=== PATIENT | male | born 1970 | race Caucasian/White ===

== ENCOUNTER 2022-12-07 09:05 | Emergency (ER) | payer OTHER ==
[2022-12-07 09:12] VITALS: RESP 16
--- NOTE | 2022-12-07 10:39 | XR ---
EXAMINATION TYPE: XR wrist complete LT DATE OF EXAM: 12/07/2022 CLINICAL HISTORY: pain TECHNIQUE: Frontal, lateral and oblique images of the left wrist are obtained. Additional scaphoid v iew is obtained. COMPARISON: None. FINDINGS: There is no acute fracture/dislocation evident. The joint spaces appear within normal cruz its. The overlying soft tissue appears unremarkable. IMPRESSION: There is no acute fracture or dislocation seen. ICD 10 NO FRACTURE, INITIAL EVALUATION
--- NOTE | 2022-12-07 10:40 | XR ---
EXAMINATION TYPE: XR hand complete LT DATE OF EXAM: 12/07/2022 CLINICAL HISTORY: pain TECHNIQUE: Frontal, lateral and oblique images of the left hand are obtained. COMPARISON: None. FINDINGS: There is no acute fracture/dislocation evident. The joint spaces appear within normal limi ts. The overlying soft tissue appears unremarkable. IMPRESSION: There is no acute fracture or dislocation. ICD 10 NO FRACTURE, INITIAL EVALUATION
--- NOTE | 2022-12-07 10:42 | ED ---
Upper Extremity HPI - General Chief Complaint: Extremity Injury, Upper Stated Complaint: Wrist injury Time Seen by Provider: 12/07/22 09:59 Source: patient, RN notes reviewed Mode of arrival: ambulatory Limitations: no limitations - History of Present Illness Initial Comments: This is a 52-year-old male who presents to the emergency department for left h and and wrist pain. States that yesterday when he was cleaning snow off of his truck, he heard a pop in his wrist. Since then, he has had pain in the left wrist and states that it overall feels weaker. He has been icing it with no relief. Additionally, he took 2 Advil last night, but ended up falling asleep so he is unsure if it was effective. Denies any fevers, chills, sore throat, cough, dyspnea, chest pain, palpitations, abdominal pain, nausea, vomiting, diarrhea, back pain, or headaches. MD Complaint: Injury to:: left, wrist Onset/Timin -: days(s) Associated Symptoms: heard/felt popping sensat Treatments Prior to Arrival: cold therapy, NSAIDS - Related Data Home Medications Medication Instructions Recorded Confirmed Ascorbic Acid [Vitamin C] 1,000 mg PO DAILY 12/15/21 12/15/21 Multivitamins, Thera [Multivitamin 1 tab PO DAILY 12/15/21 12/15/21 (formulary)] Saw Laurens 500 mg PO DAILY 12/15/21 12/15/21 Previous Rx's Medication Instructions Recorded Ketorolac [Toradol] 10 mg PO Q6HR #12 tab 12/15/21 Tamsulosin HCl [Flomax] 0.4 mg PO DAILY #5 capsule 12/15/21 Allergies Allergy/AdvReac Type Severity Reaction Status Date / Time No Known Allergies Allergy Verified 12/07/22 09:12 Review of Systems ROS Statement: Those systems with pertinent positive or pertinent negative responses have been documented in the HPI. ROS Other: All systems not noted in ROS Statement are negative. Past Medical History Past Medical History: No Reported History History of Any Multi-Drug Resistant Organisms: None Reported Past Surgical History: No Surgical Hx Reported Past Psychological History: No Psychological Hx Reported Smoking Status: Never smoker Past Alcohol Use History: Occasional Past Drug Use History: None Reported General Exam Limitations: no limitations General appearance: alert, in no apparent distress Head exam: Present: atraumatic, normocephalic, normal inspection Respiratory exam: Present: normal lung sounds bilaterally. Absent: respiratory distress, wheezes, rales, rhonchi, stridor Cardiovascular Exam: Present: regular rate, normal rhythm, normal heart sounds. Absent: systolic murmur, diastolic murmur, rubs, gallop, clicks Extremities exam: Present: other (Mild tenderness to the dorsal aspect of the left wrist. Full active and passive range of motion of the left hand and fingers. Pain induced by inversion of the left wrist. No ecchymosis, swelling, or erythema. 2+ radial pulses.) Neurological exam: Present: alert, oriented X3, CN II-XII intact Psychiatric exam: Present: normal affect, normal mood Skin exam: Present: warm, dry, intact, normal color. Absent: rash Course Vital Signs 12/07/22 12/07/22 09:08 11:38 Temperature 97.9 F 98.5 F Pulse Rate 60 68 Respiratory 16 16 Rate Blood Pressure 144/85 134/88 O2 Sat by Pulse 97 96 Oximetry Medical Decision Making - Medical Decision Making This is a 52-year-old male who presents to the emergency department for left wrist pain. Was pt. sent in by a medical professional or institution? @ -No Did you speak to anyone other than the patient for history? @ -No Did you review nursing and triage notes? @ -Yes, and I agree, it is accurate with regards to the patient's symptoms. Were old charts reviewed? @ -No Differential Diagnosis? @ -Differential Wrist Pain: -Fracture, tendinitis, sprain, ligamentous injury, arthritis, overuse injury, this is not meant to be an all-inclusive list. X-rays interpreted by me (1pt min.)? @ -X-ray of the left hand and wrist obtained. My interpretation identifies no acute fractures, dislocations, or soft tissue swelling. What testing was considered but not performed? (CT, X-rays, U/S, labs)? Why? @ -None What meds were considered but not given? Why? @ -None Did you discuss the management of the patient with other professionals? @ -No Did you reconcile home meds? @ -No Was smoking cessation discussed for >3mins.? @ -No Was critical care preformed (if so, how long)? @ -No Were there social determinants of health that impacted care today? How? (Homelessness, low income, unemployed, alcoholism, drug addiction, transportation, low edu. Level, literacy, decrease access to med. care, alf, rehab)? @ -No Was there de-escalation of care discussed even if they declined? (Discuss DNR or withdrawal of care, Hospice)? @ -No What co-morbidities impacted this encounter? (DM, HTN, Smoking, COPD, CAD, Cancer, CVA, Hep., AIDS, mental health diagnosis, sleep apnea, morbid obesity)? @ -None Was patient admitted / discharged? @ -Discharged. X-rays obtained revealing no acute findings. Advised that this is most likely a tendinitis. Advised he apply ice for 10-15 minutes every 2-3 hours for the first 2-3 days, followed by heat there afterwards. He is also instructed to alternate with [id number] anti-inflammatories and Tylenol, keep the hand elevated, and wrapped with an Manohar bandage or [id number] wrist brace. Information for orthopedic follow-up provided, advised he contact them for a follow-up appointment if symptoms do not improve. Undiagnosed new problem with uncertain prognosis? @ -None Drug Therapy requiring intensive monitoring for toxicity (Heparin, Nitro, Insulin, Cardizem)? @ -None Were any procedures done? @ -None Diagnosis/symptom? @ -Left wrist pain Acute, or Chronic, or Acute on Chronic? @ -Acute Uncomplicated (without systemic symptoms) or Complicated (systemic symptoms)? @ -Uncomplicated Side effects of treatment? @ -None Exacerbation, Progression, or Severe Exacerbation] @ -Not applicable Poses a threat to life or bodily function? @ -The pain is making it hard to use his wrist. Return precautions reviewed in depth, the patient is instructed to return to the emergency department with any new, worsening, or concerning symptoms. Patient verbalized understanding. This case was discussed in detail with the attending ED physician, Dr. Ann. Presentation, findings, and treatment plan discussed in detail as well. - Radiology Data Radiology results: report reviewed, image reviewed Disposition Clinical Impression: Tendinitis of left hand Disposition: HOME SELF-CARE Instructions (If sedation given, give patient instructions): Wrist Injury (ED), Tendinitis (ED) Additional Instructions: Return to the emergency department with any new, worsening, or concerning symptoms. Continue to apply ice for 10-15 minutes every 2-3 hours for the first 2-3 days followed by heat there afterwards. Alternate with [id number] anti-inflammatories and Tylenol for pain relief and keep the wrist wrapped to avoid any excessive movements. Contact orthopedics for a follow-up appointment if symptoms do not improve. Follow up with your primary care provider in 1-2 days. Is patient prescribed a controlled substance at d/c from ED?: No Referrals: None,Stated [Primary Care Provider] - 1-2 days Candace Cartagena DO [Doctor of Osteopathic Medicine] - 1-2 days
[2022-12-07 11:40] VITALS: BP 134/88; PULSE 68; TEMP 98.5
== END 2022-12-07 11:40 | disposition home or self-care (01) ==
LOC: EC 09:05
DX: M77.9 Enthesopathy, unspecified (principal); Y93.21 Activity, ice skating